=== PATIENT | female | born 1975 | race American Indian/Alaskan Native ===

== ENCOUNTER 2016-11-23 09:37 | Outpatient (CLI) | payer OTHER ==
--- NOTE | 2016-11-23 11:33 | Mammography Report ---
Screening mammogram: Routine views compared to her prior study in 2016. 2 parenchymal areas of asymmetry identified in the upper-outer right breast are unchanged. The remainder the breast pattern is that of intermediate fibroglandular density and a generally symmetric and unremarkable distribution. These findings are likewise unchanged. Based on prior report the findings are also stable compared to 2015. CAD used. Impression: Stable right breast asymmetries. Recommendation: Annual mammogram followup. BI-RADS CATEGORY: 2 = Benign ACR BI-RADS MAMMOGRAPHIC CODES: 0 = Needs additional imaging evaluation; 1 = Negative; 2 = Benign; 3 = Probably benign; 4 = Suspicious; 5 = Malignant; 6 = Known biopsy-proven malignancy COMMENT: 1. Dense breast tissue, i.e., adenosis, fibrocystic changes, etc., may obscure an underlying neoplasm. 2. Approximately 10% of cancers are not detected with mammography. 3. A negative mammography report should not delay biopsy if a clinically suspicious mass is present.
== END 2016-11-23 09:38 | disposition home or self-care (01) ==
LOC: SPVWC 09:37
PROVIDERS: ATTEND Family Medicine
DX: Z12.31 Encounter for screening mammogram for malignant neoplasm of breast (principal)
CPT/HCPCS: 77067; G0202

== ENCOUNTER 2017-12-06 10:20 | Outpatient (CLI) | payer OTHER ==
--- NOTE | 2017-12-06 11:01 | Ultrasound Report ---
TARGETED RIGHT BREAST ULTRASOUND: 12/06/17 10:20:00 CLINICAL: Right outer asymmetry on screening mammogram. COMPARISON: 11/29/17 mammogram FINDINGS: Ultrasound of the right breast demonstrated an oval heterogeneous solid hypoechoic mass versus complex cyst at 9 o'clock 7 cm from the nipple.It measures 1.1 x 0.7 x 1.1 cm and correlates with the mammographic density. IMPRESSION: A 1.1 cm complex cyst versus solid mass at 9 o'clock 7 cm from the nipple. Recommend ultrasound-guided needle aspiration/biopsy. BI-RADS 4--Suspicious I discussed the findings and the recommendation for needle core biopsy of the right breast with the patient at the time of the examination.
== END 2017-12-06 10:21 | disposition home or self-care (01) ==
LOC: SPVWC 10:20
PROVIDERS: ATTEND Family Medicine
DX: R92.8 Other abnormal and inconclusive findings on diagnostic imaging of breast (principal)

== ENCOUNTER 2018-12-01 16:00 | Outpatient (CLI) | payer OTHER ==
--- NOTE | 2018-12-03 15:15 | Mammography Report ---
DIGITAL SCREENING MAMMOGRAM WITH CAD, 12/01/2018 INDICATION: Routine screening mammography. Status post biopsy of a right benign fibroadenoma 12/18/19 18. TECHNIQUE: Digital bilateral 2D mammography was obtained in the craniocaudal and mediolateral obliq ue projections. This examination was interpreted with the benefit of Computer-Aided Detection analysi s. COMPARISON: 11/29/2017 FINDINGS: Breast Density: There are scattered areas of fibroglandular density. There is no evidence of new mass, suspicious calcifications or architectural distortion in either mary ast. A partially circumscribed right upper outer mass correlates with the fibroadenoma. It is more de nse and better imaged than on previous mammograms. IMPRESSION: No mammographic evidence of malignancy. Follow up recommendation: Routine yearly BI-RADS Category 2: Benign. A "normal" or negative report should not discourage follow up or biopsy of a clinically significant f inding. A written summary of these findings will be mailed to the patient. The patient will be entered into a mammography reporting system which will generate a reminder letter for the patient's next appointmen t at the appropriate interval. The [employer] recommends yearly mammograms starting at age 40 and continuing as l abraham as a woman is in good health. Breast MRI is recommended for women with an approximate 20-25% or greater lifetime risk of breast cancer, including women with a strong family history of breast or ova todd cancer or who have been treated for Hodgkin's disease. Signer Name: Aleks Keller MD Signed: 12/03/2018 3:10 PM Workstation Name: [id number]
== END 2018-12-01 16:01 | disposition home or self-care (01) ==
LOC: SPVWC 16:00
PROVIDERS: ATTEND Family Medicine
DX: Z12.31 Encounter for screening mammogram for malignant neoplasm of breast (principal)
CPT/HCPCS: 77067

== ENCOUNTER 2019-12-03 10:31 | Outpatient (CLI) | payer OTHER ==
--- NOTE | 2019-12-03 16:11 | Mammography Report ---
DIGITAL SCREENING MAMMOGRAM WITH CAD, 12/03/2019 INDICATION: Routine screening mammography. TECHNIQUE: Digital bilateral 2D mammography was obtained in the craniocaudal and mediolateral obliq ue projections. This examination was interpreted with the benefit of Computer-Aided Detection analysi s. COMPARISON: 12/01/2018, 12/17/2017, 11/29/2017 FINDINGS: Breast Density: There are scattered areas of fibroglandular density. There is no evidence of dominant mass, suspicious calcifications or architectural distortion in eithe r breast. A previously biopsied upper outer quadrant right breast mass is stable. No other significan t interval changes are noted. IMPRESSION: Follow up recommendation: Routine yearly BI-RADS Category 2: Benign. A "normal" or negative report should not discourage follow up or biopsy of a clinically significant f inding. A written summary of these findings will be mailed to the patient. The patient will be entered into a mammography reporting system which will generate a reminder letter for the patient's next appointmen t at the appropriate interval. The [employer] recommends yearly mammograms starting at age 40 and continuing as l abraham as a woman is in good health. Breast MRI is recommended for women with an approximate 20-25% or greater lifetime risk of breast cancer, including women with a strong family history of breast or ova todd cancer or who have been treated for Hodgkin's disease. Signer Name: Issac Pisano MD Signed: 12/03/2019 4:06 PM Workstation Name: [id number]
== END 2019-12-03 10:32 | disposition home or self-care (01) ==
LOC: SPVWC 10:31
PROVIDERS: ATTEND Family Medicine
DX: Z12.31 Encounter for screening mammogram for malignant neoplasm of breast (principal)
CPT/HCPCS: 77067

== ENCOUNTER 2020-12-06 15:46 | Outpatient (CLI) | payer OTHER ==
--- NOTE | 2020-12-07 18:15 | Mammography Report ---
DIGITAL SCREENING MAMMOGRAM WITH CAD, 12/07/2020 CLINICAL INFORMATION / INDICATION: Routine screening mammography. SCREENING MAMMO TECHNIQUE: Digital bilateral 2D mammography was obtained in the craniocaudal and mediolateral obliqu e projections. This examination was interpreted with the benefit of Computer-Aided Detection analysis . COMPARISON: 12/03/19, 12/01/18 FINDINGS: Breast Density: There are scattered areas of fibroglandular density. No dominant mass, suspicious calcifications, or architectural distortion in either breast. Right breast nodule with associated biopsy clip is unchanged. IMPRESSION: No mammographic evidence of malignancy. No significant change. Follow up recommendation: Routine yearly BI-RADS Category 2: Benign. A "normal" or negative report should not discourage follow up or biopsy of a clinically significant f inding. A written summary of these findings will be mailed to the patient. The patient will be entered into a mammography reporting system which will generate a reminder letter for the patient's next appointmen t at the appropriate interval. The [employer] recommends yearly mammograms starting at age 40 and continuing as l abraham as a woman is in good health. Breast MRI is recommended for women with an approximate 20-25% or greater lifetime risk of breast cancer, including women with a strong family history of breast or ova todd cancer or who have been treated for Hodgkin's disease. Signer Name: Rigo Chamberlain MD Signed: 12/07/2020 6:11 PM Workstation Name: [id number]
== END 2020-12-06 15:47 | disposition home or self-care (01) ==
LOC: SPVWC 15:46
PROVIDERS: ATTEND Family Medicine
DX: Z12.31 Encounter for screening mammogram for malignant neoplasm of breast (principal)
CPT/HCPCS: 77067